=== PATIENT | female | born 1945 | race Hispanic/Latino ===

== ENCOUNTER 2017-05-05 21:20 | Emergency (ER) | payer MEDICARE, OTHER ==
[2017-05-05 21:21] VITALS: BMI 36.8
[2017-05-05 21:26] VITALS: BP 133/65; PULSE 83; RESP 16; TEMP 97.5; O2SAT 97
[2017-05-05] MEDS ORDERED: Sodium Chloride 0.9% 1,000 ML IV STA (23:08)
--- NOTE | 2017-05-05 23:47 | ED PDOC ---
HPI: Back Time Seen by Provider: 05/05/17 22:53 Chief Complaint (Nursing): Back Pain Chief Complaint (Provider): Left flank pain, dizziness, nausea History Per: Patient History/Exam Limitations: no limitations Onset/Duration Of Symptoms: Mins Current Symptoms Are (Timing): Still Present Quality Of Discomfort: Sharp Description Of Injury (Context): Getting up fast Severity: Moderate Pain Scale Rating Of: 6 Previous Symptoms: Back Pain Associated Symptoms: None Exacerbating Factor(s): Movement Additional Complaint(s): Pt states she is also very dizzy and feels like she might pass out. No fever/ chills. No chest pain. Pt reports head pressure. Past Medical History Reviewed: Historical Data, Nursing Documentation, Vital Signs Vital Signs: Last Vital Signs Temp 97.5 F L 05/05/17 21:23 Pulse 83 05/05/17 21:23 Resp 16 05/05/17 21:23 BP 133/65 05/05/17 21:23 Pulse Ox 97 05/05/17 21:23 - Medical History PMH: Deep Vein Thrombosis, HTN, Hypercholesterolemia, Hyperthyroidism - Surgical History Surgical History: No Surg Hx - Family History Family History: States: No Known Family Hx - Living Arrangements Living Arrangements: With Family - Social History Current smoker - smoking cessation education provided: No - Home Medications Home Medications: Ambulatory Orders Medication Instructions Recorded Folic Acid [Folic Acid] 2 mg PO DAILY 10/06/15 Levothyroxine [Synthroid] 75 mcg PO DAILY 10/06/15 Olmesartan/Hydrochlorothiazide 1 tab PO DAILY 10/06/15 [Benicar Hct 40-25 mg Tablet] Pravastatin Sodium [Pravachol] 40 mg PO DAILY 10/06/15 Sertraline HCl [Zoloft] 50 mg PO DAILY 10/06/15 Cholecalciferol (Vitamin D3) 2,000 unit PO DAILY 07/30/16 [Vitamin D3] amLODIPine [Norvasc] 5 mg PO DAILY 07/30/16 Meclizine [Meclizine*] 25 mg PO Q6 #30 tab 07/31/16 Ondansetron [Zofran] 4 mg PO Q8H #16 tab 07/31/16 - Allergies Allergies/Adverse Reactions: Allergies Allergy/AdvReac Type Severity Reaction Status Date / Time atorvastatin calcium AdvReac SWELLING Verified 07/30/16 22:45 [From Lipitor] fenofibrate nanocrystallized AdvReac SWELLING Verified 07/30/16 22:45 [From Tricor] fenofibrate,micronized AdvReac SWELLING Verified 07/30/16 22:45 [From Tricor] Review of Systems ROS Statement: Except As Marked, All Systems Reviewed And Found Negative Constitutional: Positive for: Weakness. Negative for: Fever, Chills Cardiovascular: Negative for: Chest Pain, Palpitations Respiratory: Negative for: Shortness of Breath Gastrointestinal: Positive for: Nausea. Negative for: Abdominal Pain Neurological: Positive for: Headache (Head pressure ), Dizziness Physical Exam - Reviewed Nursing Documentation Reviewed: Yes Vital Signs Reviewed: Yes - Physical Exam Appears: Positive for: Well, Non-toxic, No Acute Distress Head Exam: Positive for: ATRAUMATIC, NORMAL INSPECTION, NORMOCEPHALIC Skin: Positive for: Normal Color, Warm, DRY Eye Exam: Positive for: Normal appearance, EOMI, PERRL ENT: Positive for: Normal ENT Inspection Neck: Positive for: Normal, Painless ROM Cardiovascular/Chest: Positive for: Regular Rate, Rhythm Respiratory: Positive for: Normal Breath Sounds. Negative for: Accessory Muscle Use, Respiratory Distress Gastrointestinal/Abdominal: Positive for: Normal Exam, Bowel Sounds, Soft. Negative for: Tenderness Back: Positive for: Normal Inspection Extremity: Positive for: Normal ROM Neurologic/Psych: Positive for: Alert, Oriented - ECG O2 Sat by Pulse Oximetry: 97 Medical Decision Making Medical Decision Making: Endorsed pending labs, head CT. Urine dip in Er normal. Disposition - Clinical Impression Clinical Impression: Vertigo, Chronic back pain - Patient ED Disposition Is Patient to be Admitted: Transfer of Care - Disposition Disposition: Transfer of Care Disposition Time: 23:49 Condition: STABLE
[2017-05-06 00:18] LABS: BASO % 0.3 % (0.0-2.0); EOS % 0.1 % (0.0-4.0); HEMOGLOBIN 12.1 g/dL (12.0-16.0); LYMPH # 0.7 K/uL (1.0-4.3); LYMPH % 6.5 % (20.0-40.0); MEAN CELL VOLUME 87.1 fl (81.0-99.0); MEAN CORPUSCULAR HEMOGLOBIN 29.1 pg (27.0-31.0); MEAN CORPUSCULAR HGB CONC 33.4 g/dL (33.0-37.0); MEAN PLATELET VOLUME 7.9 fl (7.2-11.7); MONO # 0.5 K/uL (0.0-0.8); NEUT # 10.2 K/uL (1.8-7.0); NEUT % 89.1 % (50.0-75.0); PLATELET COUNT 251 K/uL (130-400); RBC 4.16 Mil/uL (3.80-5.20); RED CELL DISTRIBUTION WIDTH 14.3 % (11.5-14.5); WHITE BLOOD COUNT 11.5 K/uL (4.8-10.8)
[2017-05-06 00:25] LABS: SQUAMOUS EPITHIAL 2 /hpf (0-5); URINE BILIRUBIN NEGATIVE (NEGATIVE); URINE BLOOD NEGATIVE (NEGATIVE); URINE CLARITY SLIGHTY-CLOUDY (Clear); URINE COLOR YELLOW (YELLOW); URINE GLUCOSE (UA) NEG (Normal); URINE LEUKOCYTE ESTERASE NEG Leu/uL (Negative); URINE NITRATE NEGATIVE (NEGATIVE); URINE PROTEIN NEGATIVE (NEGATIVE); URINE UROBILINOGEN 0.2-1.0 mg/dL (0.2-1.0)
[2017-05-06 00:26] LABS: INR 2.4 (0.9-1.2); PARTIAL THROMBOPLASTIN TIME 38.5 Seconds (25.6-37.1); PROTHROMBIN TIME 26.9 Seconds (9.8-13.1)
[2017-05-06 00:27] LABS: ALB/GLOB RATIO 1.3 (1.0-2.1); ALBUMIN 4.6 g/dL (3.5-5.0); ALT/SGPT 23 U/L (9-52); AST/SGOT 18 U/L (14-36); BLOOD UREA NITROGEN 38 mg/dl (7-17); CALCIUM 9.9 mg/dL (8.4-10.2); GFR AFRICAN-AMERICAN 38; GFR NON-AFRICAN AMERICAN 32
--- NOTE | 2017-05-06 01:25 | ED PDOC ---
- Laboratory Results Result Diagrams: 05/06/17 00:14 05/06/17 00:14 - ECG O2 Sat by Pulse Oximetry: 97 - Progress ED Course And Treament: Case endorsed to advertising copy writer from [facility] pending labs, imaging, re-eval EXAM: CT Head Without Intravenous Contrast CLINICAL HISTORY: 71 years old, female; Signs and symptoms; Dizziness; Additional info: Dizziness , nausea - on coumadin TECHNIQUE: Axial computed tomography images of the head/brain without intravenous contrast. All CT scans at this facility use one or more dose reduction techniques, viz.: automated exposure control; ma/kV adjustment per patient size (including targeted exams where dose is matched to indication; i.e. head); or iterative reconstruction technique. Coronal and sagittal reformatted images were created and reviewed. COMPARISON: CT - HEAD^HEAD_ROUTINE (ADULT) 2009-09-16 13:41 FINDINGS: Brain: Mild volume loss No hemorrhage. Mild white matter disease. No edema. Ventricles: Unremarkable. No ventriculomegaly. Bones/joints: Unremarkable. No acute fracture. Soft tissues: Unremarkable. Sinuses: Unremarkable as visualized. No acute sinusitis. Mastoid air cells: Unremarkable as visualized. No mastoid effusion. IMPRESSION: No intracranial hemorrhage.Please see discussion above. On re-eval, patient states she is feeling better. Patient states this is the second time she became dizzy and lightheaded after taking Tramadol; advised to d /c tramadol. Patient reports history of vertigo in past, similar ED visits for same; states she does not take anything at home for it. Patient educated on findings Rx Meclizine, Lidoderm provided. Advised follow up PMD 2-3 days. Return precautions given. Disposition - Clinical Impression Clinical Impression: Vertigo, Chronic back pain - POA Present On Arrival: None - Disposition Disposition: Routine/Home Disposition Time: 02:42 Condition: IMPROVED Prescriptions: Lidocaine 5% [Lidoderm] 1 patch TOP DAILY #7 patch Meclizine [Meclizine*] 25 mg PO TID PRN #21 tab PRN Reason: Dizziness Instructions: Vertigo (ED), Chronic Back Pain (ED) Forms: [employer] ([employer])
[2017-05-06 02:14] LABS: LYMPHOCYTE 3 % (20-50); MONOCYTE 1 % (0-10); NEUTROPHIL 96 % (42-75); TOTAL CELLS COUNTED 100
[2017-05-06 02:15] LABS: PLATELET ESTIMATE NORMAL (NORMAL)
[2017-05-06 02:16] LABS: ANISOCYTOSIS SLIGHT; STOMATOCYTES SLIGHT
--- NOTE | 2017-05-06 08:37 | CT ---
PROCEDURE: CT HEAD WITHOUT CONTRAST. HISTORY: dizziness, nausea - On coumadin COMPARISON: 09/16/2009. TECHNIQUE: Axial computed tomography images were obtained through the head/brain without intravenous contrast. Radiation dose: Total exam DLP = 833.53 mGy-cm. This CT exam was performed using one or more of the following dose reduction techniques: Automated exposure control, adjustment of the mA and/or kV according to patient size, and/or use of iterative reconstruction technique. FINDINGS: HEMORRHAGE: No intracranial hemorrhage. BRAIN: Martino-white matter differentiation is preserved. There is no mass, mass effect or abnormal extra-axial fluid collection. VENTRICLES: There is mild age-related global parenchymal volume loss and proportionate enlargement of the ventricles and cortical sulci. CALVARIUM: There is no calvarial fracture or extracranial soft tissue swelling. PARANASAL SINUSES: Predominantly clear. MASTOID AIR CELLS: Predominantly clear. OTHER FINDINGS: None. IMPRESSION: No acute intracranial abnormality. Mild age-related global parenchymal volume loss.
--- NOTE | 2017-05-06 11:10 | RAD ---
HISTORY: COMPARISON: 10/06/2015. TECHNIQUE: Chest PA and lateral FINDINGS: LINES AND TUBES: None. LUNG AND PLEURA: The lungs are hyperinflated and there is peribronchial thickening with chronic changes in both lungs. There is no lobar pneumonia. There is a running suture in the left lower lobe. HEART AND MEDIASTINUM: The heart is not enlarged. The hilar and mediastinal contours are within normal limits. SKELETAL STRUCTURES: Postsurgical changes of left thoracotomy. VISUALIZED UPPER ABDOMEN: Normal. OTHER FINDINGS: None. IMPRESSION: No acute findings.
== END 2017-05-06 02:49 | disposition home or self-care (01) ==
LOC: H.ER 21:20
DX: R42 Dizziness and giddiness (principal); M54.9 Dorsalgia, unspecified; E05.90 Thyrotoxicosis, unspecified without thyrotoxic crisis or storm; E78.00 Pure hypercholesterolemia, unspecified; G89.29 Other chronic pain; I10 Essential (primary) hypertension; Z79.01 Long term (current) use of anticoagulants; Z86.718 Personal history of other venous thrombosis and embolism
CPT/HCPCS: 70450; 71046; 80053; 81003; 84484; 85025; 85610; 85730; 87086; 87804; 96360; 99283; J2405; J7040